=== PATIENT | female | born 2005 | race Caucasian/White ===

== ENCOUNTER 2024-12-13 15:02 | Emergency (ER) | payer OTHER, SELFPAY ==
--- NOTE | ~2024-12-13 | US_ITS ---
CLINICAL HISTORY: pelvic pain, heavy menses US pelvis transabdominal Comparison: None provided Findings: Transabdominal scanning performed. Both ovaries normal in size and appearance. Uterus is unremarkable. Normal endometrium. No free fluid. IMPRESSION: 1. Normal transabdominal pelvic ultrasound. This document has been electronically signed by: Michael Ceballos MD on 12/13/2024 19:17:22
--- NOTE | 2024-12-13 15:20 | ED_ITS ---
HPI - Abdominal Pain General Chief Complaint: Abdominal Pain Stated Complaint: N/V, Cramps Time Seen by Provider: 12/13/24 17:01 Source: patient Mode of arrival: ambulatory Limitations: no limitations History of Present Illness ED Provider: Maria Ines Rodriguez PA-C HPI narrative: This is a 19-year-old female assigned at who presents emergency department with concerns of nausea, vomiting and abdominal cramping since 10:30AM this morning. Patient reports that they have had irregular menses for over the past year and patient states that they are currently on their menstrual period. No diarrhea, constipation, or urinary symptoms. Patient reports that they have had abnormal menses, states that that they were over 10 days late this time - last menstrual period was 40 days ago. States that they typically have a very painful period on the 1st day. Patient state that today was very unusual for severe pain. Took Tylenol without any pain relief. Denies any fevers or chills. They are sexually active, no concerns for sexually transmitted infections. No urinary symptoms. patient has not seen an OBGYN before. MD elicited complaint: abdominal pain Onset (ago): hour(s) Related Data Previous Rx's ?Medication ?Instructions ?Recorded cefuroxime axetil 250 mg tablet 250 mg PO BID 7 days # 14 tabs 12/13/24 ketorolac 10 mg tablet 10 mg PO Q8H PRN pain 2 days #6 12/13/24 tabs Allergies Allergy/AdvReac Type Severity Reaction Status Date / Time No Known Allergies Allergy Verified 12/13/24 15:23 Review of Systems Review of Systems Constitutional : No Fever, No Chills ENT/Mouth : No sore throat, No Rhinorrhea Eyes: No Eye Pain, No Swelling, No Redness Cardiovascular : No Chest Pain, No SOB Respiratory : No Cough, No Sputum Gastrointestinal : No Nausea, No Vomiting, No Diarrhea, No abdominal Pain Genitourinary : No Dysuria, No Hematuria Musculoskeletal : No joint pain, No Myalgias, No Joint Swelling Skin : No Skin Lesions, positive skin rash Neuro : No Weakness, No Numbness, No Headache All other systems reviewed and are negative Yes all other systems are reviewed and are negative Constitutional: Reports as per [facility] Social History Social History Advance Directives: No Advance Directives Information Provided: Yes Do you have a plan to hurt others: No Plan Physical Exam ED Vital Signs: Vital Signs - 24 hr 12/13/24 15:22 12/13/24 17:29 12/13/24 18:24 Temperature 98.3 F Pulse Rate 95 82 84 Respiratory Rate 17 16 Blood Pressure 135/70 107/57 L Pulse Oximetry 100 100 Oxygen Delivery Method Room Air Room Air 12/13/24 18:25 12/13/24 18:27 12/13/24 23:00 Temperature 97.9 F Pulse Rate 86 104 H 78 Respiratory Rate 16 Blood Pressure 106/58 L 109/58 L 117/68 Pulse Oximetry 100 Oxygen Delivery Method 12/14/24 00:01 Temperature 97.9 F Pulse Rate 78 Respiratory Rate 16 Blood Pressure 117/68 Pulse Oximetry 100 Oxygen Delivery Method BMI result Body Mass Index 26.0 Const General: cooperative, comfortable and no acute distress Orientation/consciousness: patient oriented x3 Limitations: no limitations HENMT Head: Yes normal to inspection, Yes normocephalic and Yes atraumatic Ears: hearing grossly normal bilaterally General nose exam: Normal external nose present Face and sinus: Yes normal facial exam Mouth: Normal oral and palatal mucosa present, oropharynx normal and moist mucous membranes Throat: Yes posterior oropharynx normal Eyes General: appearance normal, both eyes and all related structures Eyelids: Yes eyelids normal Conjunctivae: conjunctivae normal Sclerae: sclerae normal Pupils: Equal, round and reactive pupils present EOM: EOMs intact bilaterally Neck Neck: Yes normal visual inspection, Yes full ROM and Yes no lymphadenopathy Lymphatic: no lymphadenopathy noted Chest Chest palpation & inspection: normal inspection of the chest Resp Effort & Inspection: normal respiratory effort and able to speak in complete sentences Auscultation: clear to auscultation bilaterally, no crackles, no rales, no rhonchi and no wheezes Cardio Rate: regular rate Rhythm: regular rhythm Heart sounds: S1 normal heart sound present and S2 normal heart sound present GI Inspection: Yes normal to inspection Other: No cervical motion tenderness on exam. Mild bright red blood in vaginal canal, no active hemorrhage noted. External Female Exam: normal external appearance Speculum Exam - Vagina: normal appearance of the vagina, normal palpation and normal vaginal discharge Speculum Exam - Cervix: normal appearance of the cervix, normal palpation and Cervical os closed Bimanual exam- vagina & uterus: normal palpation and normal palpation Bimanual Exam- Adnexa, other: normal adnexae Skin General skin exam: no rashes or lesions noted Trauma: no lacerations or abrasions Wounds: no wounds Neuro General: patient oriented x3 and moves all extremities Cranial nerves: Yes Equal, round and reactive pupils present Extrem General: Yes normal to inspection Right upper extremity: normal to inspection Left upper extremity: normal to inspection Right lower extremity: normal to inspection Left lower extremity: normal to inspection Course Course Course Narrative: Marian Tony [employer]ADER 12/13 1520 This is a rapid medical exam. Deferred additional HPI, ROS, PE to primary provider. 19yo female with no PMH here with complaints of abdominal cramping, nausea/vomiting since 1030 this morning. Currently on her menstrual cycle. No diarrhea, constipation, urinary symptoms. No concern for . No concern for STI. Will obtain labs, UA VSS Reevaluation(s) Reevaluation #1: I Christelle Romo PA-C have accepted care of the patient and signed out pending transvaginal ultrasound and final disposition Transvaginal ultrasound:Comparison: None provided Findings: Additional color and spectral Doppler images of the ovaries were obtained. Both ovaries demonstrate normal color Doppler signal with normal arterial and venous spectral tracings. IMPRESSION: 1. Normal pelvic ultrasound with Doppler. No evidence of ovarian torsion. This document has been electronically signed by: Michael Ceballos MD on 12/13/2024 23:13:22 Addendum Dictated By: Michael Ceballos MD Addendum Signed By: <Electronically signed by Michael Ceballos MD in [place]> 12/13/242313 Addendum Cosigned By: DD/ TD/TT: 12/13/24 CLINICAL HISTORY: pelvic pain, heavy menses US pelvis transabdominal Comparison: None provided Findings: Transabdominal scanning performed. Both ovaries normal in size and appearance. Uterus is unremarkable. Normal endometrium. No free fluid. IMPRESSION: 1. Normal transabdominal pelvic ultrasound. This document has been electronically signed by: Michael Ceballos MD on 12/13/2024 19:17:22 Dictated By: Vadim Medical Decision Making Medical Decision Making [facility] Narrative: This is a 19-year-old female who presents emergency department with concerns of pelvic pain which started at 10:30 a.m. this morning. Last menstrual period was 40 days ago. They state that they are menses was 10 days late. On arrival, vital signs within normal limits. Patient with mild tenderness palpation in the pelvic region, no exquisite tenderness palpation, abdomen is soft, nontender. Differential diagnoses includes dysmenorrhea, abnormal uterine bleeding, ovarian cyst. Less likely ovarian torsion, or UTI given that she has no urinary symptoms. 9:07 PM 12/13/2024 (Maria Ines Rodriguez PA-C): Ultrasound was performed, unremarkable however ovarian Doppler was not on the scan therefore reordered. Labs were obtained, slight leukocytosis at 13.2, chemistry revealing no significant electrolyte derangement. They are not . Urine with high specific gravity, large blood, small leuk esterases, and wbc's. They have no urinary symptoms, this is unlikely a urinary tract infection however will start on oral antibiotics. Awaiting ultrasound with Doppler, although ovarian torsion is less likely as patient has much more comfortable. Pelvic examination was performed, no acute findings seen. Patient does have some scant vaginal bleeding in the vaginal vault however no evidence of hemorrhage. H&H stable. Sign out given to my colleague, Luisa Romo, pending US with doppler. Differential Diagnosis Differential Diagnoses: The differential diagnosis associated with the presentation includes See above Admission/Observation Consideration of admission/observation: Escalation of care including admission/observation considered Lab Data [facility] Lab Attestation statement: I reviewed the patient's lab results. See [facility] 12/13/24 15:34 12/13/24 15:34 Labs: Lab Results 12/13/24 12/13/24 12/13/24 Range/Units 15:34 15:39 20:47 WBC 13.2 H (4.8-10.8) X10*3/uL RBC 4.33 (4.20-5.50) X10*6/uL Hgb 13.7 (12.0-16.0) g/dl Hct 39.4 (37.0-47.0) % MCV 91.0 (80.0-98.0) fL MCH 31.6 (27.0-33.0) pg MCHC 34.8 (31.0-35.0) g/dl RDW 12.3 (11.0-16.0) % Plt Count 247 (160-400) X10*3/uL MPV 9.3 L (9.4-12.3) fL Immature Gran % (Auto) 0.2 (0.0-0.4) % Neut % (Auto) 86.0 H (45-73) % Lymph % (Auto) 10.1 L (20-40) % Hardee % (Auto) 3.4 (2-11) % Eos % (Auto) 0.1 (0-4) % Baso % (Auto) 0.2 (0-2) % Lymph # (Auto) 1.3 (1.2-4.9) X10*3/uL Hardee # (Auto) 0.5 (0.1-1.2) X10*3/uL Eos # (Auto) 0.0 (0.0-0.4) X10*3/uL Baso # (Auto) 0.0 (0.0-0.2) X10*3/uL Abs Immat Gran (auto) 0.03 (0.00-0.03) X10*3/uL Absolute Neuts (auto) 11.3 H (2.0-8.3) x10*3/uL Absolute Nucleated RBC 0.000 (0.0-0.012) X10*3/uL Nucleated RBC % (auto) 0.0 (0.0-0.2) /100WBC Sodium 146 H (135-145) mmol/L Potassium 4.2 (3.3-5.1) mmol/L Chloride 111 H (96-108) mmol/L Carbon Dioxide 24 (22-29) mmol/L Anion Gap 15 (12-20) BUN 7 L (9-16) mg/dL Creatinine 0.59 (0.5-1.4) mg/dL Estim Creat Clear Calc 144.8 Estimated GFR > 60 Random Glucose 105 (60-115) mg/dL Calcium 9.3 (8.4-10.2) mg/dL Total Bilirubin 0.9 (0.0-1.0) mg/dL Direct Bilirubin 0.3 (0.0-0.5) mg/dL AST 17 (5-31) U/L ALT 7 (0-31) U/L Alkaline Phosphatase 67 (39-117) U/L Total Protein 7.3 (6.5-8.0) g/dL Albumin 5.0 (3.5-5.0) g/dL Beta HCG, Quant < 2 mIU/mL Urine Color Yellow Urine Appearance Clear Urine pH 5.5 (5.0-9.0) Ur Specific [place]wood >= 1.030 H (1.005-1.025) Urine Protein 30 (1+) H (Neg-Trace) mg/dL Urine Glucose (UA) Negative (Negative) mg/dL Urine Ketones 40 (Negative) mg/dL Urine Blood Large (3+) H (Negative) Urine Nitrite Negative (Negative) Ur Leukocyte Esterase Small (1+) H (Negative) Urine RBC >20 H (0-2) /HPF Urine WBC 11-20 H (0-5) /HPF Ur Squamous Epith Cells 0-2 (0-2) /HPF Urine Bacteria Trace (None Seen) Hyaline Casts 0-2 (0-2) /LPF Urine Test NEGATIVE (NEGATIVE) Chlam trachomat DNA PCR NOT DETECTED (Not Detect.) N.gonorrhoeae DNA (PCR) NOT DETECTED (Not Detect.) T. vaginalis (PCR) NOT DETECTED (Not Detect) Bact vaginosis (PCR) NEGATIVE (Negative) C. krusei/glabrata (PCR) NOT DETECTED (Not Detect) Kristal group (PCR) NOT DETECTED (Not Detect) Radiology Impression Discussion of test interpretation with radiology: I have reviewed the radiologist's reading. Radiologist Impression: ADDENDUMThis document has been electronically signed by: Michael Ceballos MD on 12/13/2024 19:17:22 ADDENDUM: US pelvis transvaginal with Doppler Comparison: None provided Findings: Additional color and spectral Doppler images of the ovaries were obtained. Both ovaries demonstrate normal color Doppler signal with normal arterial and venous spectral tracings. IMPRESSION: 1. Normal pelvic ultrasound with Doppler. No evidence of ovarian torsion. This document has been electronically signed by: Michael Ceballos MD on 12/13/2024 23:13:22 Addendum Dictated By: Michael Ceballos MD Addendum Signed By: <Electronically signed by Michael Ceballos MD in [place]> 12/13/242313 Addendum Cosigned By: DD/ TD/TT: 12/13/24 CLINICAL HISTORY: pelvic pain, heavy menses US pelvis transabdominal Comparison: None provided Findings: Transabdominal scanning performed. Both ovaries normal in size and appearance. Uterus is unremarkable. Normal endometrium. No free fluid. IMPRESSION: 1. Normal transabdominal pelvic ultrasound. This document has been electronically signed by: Michael Ceballos MD on 12/13/2024 19:17:22 Dictated By: Michael Ceballos MD Medications Administered Discontinued Medications Generic Name Dose Route Start Last Admin Trade Name Freq PRN Reason Stop Dose Admin Cefuroxime Axetil 250 mg 12/13/24 21:06 12/13/24 21:21 Cefuroxime Axetil 250 Mg Tablet PO 12/13/24 21:07 250 mg ONCE ONE Administration Sodium Chloride 1,000 mls @ 999 mls/hr 12/13/24 17:18 12/13/24 18:42 Ns IV 12/13/24 18:18 Infused .Q1H1M ONE Infusion Ketorolac Tromethamine 15 mg 12/13/24 17:19 12/13/24 17:27 Ketorolac Tromethamine 15 Mg/Ml Vial IVPUSH 12/13/24 17:20 15 mg ONCE ONE Administration Discharge Plan Discharge Clinical Impression: Abnormal uterine bleeding, UTI (urinary tract infection) Patient Disposition: Home, Self-Care Instructions: Abnormal (Dysfunctional) Uterine Bleeding (ED) Additional Instructions: You were seen in the emergency department and your workup today was reassuring. The transvaginal ultrasound was normal there were no acute findings. Your urine does appear to be infected however this could be due to contamination, we started you on antibiotics, we gave you your 1st dose here. Please resume tomorrow. Your swabs that were collected today will be process, we will call you if any of these are positive. You need to follow-up with an OBGYN. If any new or worsening symptoms occur including but not limited to worsening pain, high fevers, chills, please seek emergent care. Prescriptions: New ketorolac 10 mg tablet 10 mg PO Q8H PRN (Reason: pain) 2 Days Qty: 6 0RF cefuroxime axetil 250 mg tablet 250 mg PO BID 7 Days Qty: 14 0RF Stand Alone Forms: Work/School Release Interventions: ED Discharge Assessment Last Done: 12/14/24 00:01 Discharge Date/Time: 12/14/24 00:01 Print Language: Yi
[2024-12-13 15:22] VITALS: BP 135/70; PULSE 95; RESP 17; TEMP 36.8; O2SAT 100; BMI 26.0
[2024-12-13 15:39] LABS: MANUAL DIFF FLAG NO
[2024-12-13 15:42] LABS: Hematocrit 39.4 % (37.0-47.0); Hemoglobin 13.7 g/dl (12.0-16.0); Imm Gran Abs Auto 0.03 X10*3/uL (0.00-0.03); Imm Gran Pct Auto 0.2 % (0.0-0.4); Lymphocytes Absolute Auto 1.3 X10*3/uL (1.2-4.9); Mean Corpuscular HGB Conc 34.8 g/dl (31.0-35.0); Mean Corpuscular Hemoglobin 31.6 pg (27.0-33.0); Mean Corpuscular Volume 91.0 fL (80.0-98.0); NRBC Abs Auto 0.000 X10*3/uL (0.0-0.012); NRBC Pct Auto 0.0 /100WBC (0.0-0.2); Platelet Count 247 X10*3/uL (160-400); Red Blood Count 4.33 X10*6/uL (4.20-5.50); White Blood Count 13.2 X10*3/uL (4.8-10.8)
[2024-12-13 16:00] LABS: Appearance Urine Clear; Glucose Urine UA Negative (Negative); PH 5.5 (5.0-9.0); Specific Gravity - Urine >= 1.030 (1.005-1.025); UMIC TRIGGER UACC YES
[2024-12-13 16:01] LABS: UPreg QC Valid YES
[2024-12-13 16:02] LABS: UACC Culture Trigger YES
[2024-12-13 16:13] LABS: Alanine Aminotransferase 7 U/L (0-31); Albumin Level 5.0 g/dL (3.5-5.0); Alkaline Phosphatase 67 U/L (39-117); Anion Gap 15 (12-20); Aspartate Amino Transferase 17 U/L (5-31); Blood Urea Nitrogen 7 mg/dL (9-16); Calcium 9.3 mg/dL (8.4-10.2); Carbon Dioxide 24 mmol/L (22-29); Chloride 111 mmol/L (96-108); Creatinine Clr Calc Pharmacy 144.8; Estimated Glomerular Filt Rate > 60; Potassium 4.2 mmol/L (3.3-5.1); Sodium 146 mmol/L (135-145); Total Protein 7.3 g/dL (6.5-8.0)
--- OUTSIDE RECORDS SUMMARY | 2024-12-13 17:02 | XMS_ITS | Patient Health Record ---
Author Organization [facility] Address [address] [place] [address] Support Name Relationship Address Phone GINNY ARCHULETA Guarantor Unknown [phone] Allergies No Known Allergies Reason For Referral No Information Medications Medication SIG (Take, Route, Frequency, Duration) Notes Start Date End Date Status Mupirocin apply a small amount to both nostrils twice daily x two weeks *Pick strength-form from [employer] for eRX* 12/12/2021 Active Immunizations Vaccine Route Administration Date Status Comme nts HPV9 (human papillomavirus), nonavalent Unknown 10/15/2016 Administered HPV9 (human papillomavirus), nonavalent Unknown 06/25/2017 Administered HPV9 (human papillomavirus), nonavalent Unknown 06/02/2018 Administered Influenza, quadrivalent, spl it, preservative free, 3 years or older Unknown 02/05/2018 Administered Meningococcal MCV4O Unknown 10/15/2016 Administered Novel [id number], nasal Unknown 03/03/2009 Admin istered Pfizer Biontech Covid-19 Vac cine 2nd dose Unknown 07/05/2020 Administered Pfizer Biontech Covid-19 Vac cine 2nd dose Unknown 07/26/2020 Administered Pfizer Biontech Covid-19 Vac cine 2nd dose Unknown 03/08/2021 Administered Tdap Unknown 10/15/2016 Administered Social History Social History Additional Details Category Social Info Options Details Migrated Social History Migrated Social History Health-related behavior : Marital Status: single ST , Alcohol intake : denies alcohol use ST , Smoking Status : smoking status - Never smoker Problems Problem Type SNOMED Code ICD Code Onset Dates Problem Status W/U Status Risk Notes Problem Deviated nasal septum (359525106) Deviated nasal septum (J34.2) 12/12/2021 Active confirmed Problem Epistaxis (459262463) Epistaxis (R04.0) 12/12/2021 Active confirmed Problem Body mass index (09381810) Body mass index (BMI) pediatric, 5th percentile to less than 85th percentile for age (Z68.52) 12/12/2021 Active confirmed Plan Of Treatment No Information Insurance Providers Payer Name Payer Address Payer Phone Subscriber Number Group Number Insured Name Patient Relationship to Insured Coverage Start Date Coverage End Date [employer] [address] [address] [place] [address] [id number] ZANE ARCHULETA Self - patient is the insured 9
--- OUTSIDE RECORDS SUMMARY | 2024-12-13 17:02 | XMS_ITS | Clinical Summary ---
Author Organization [facility] Address [address] [place] [address] Care Team Providers Care Oral And Maxillofacial Pathologist Name Role Phone Unavailable Primary Care Provider Unavailabl e Allergies No known active allergies Medications MULTIVITAMIN POIndications:It benny take by mouth. Active Active Problems Problem Noted Date Diagnosed Date BMI (body mass index), pedia tric, 85% to less than 95% for age 0609/03/2013 Hemangioma of skin 02/14/2010 Immunizations Immunization Administration Dates Next Due DTaP Vaccine 07/30/2005, 5,2004,2004 DTaP/IPV (KINRIX) 06/30/2009 H1N1 Nasal Mist (Novel) >2yr 03/03/2009 HEP B/HIB (COMVAX) 05/17/2005,2004, 005 Hepatitis A (<19yr) 02/04/2006,07/30/2005 Influenza Vaccine FluMIST >2 yr (Flu Clinic) 01/14/2009 Influenza Vaccine FluMIST Quadrivalent (>2yr) 02/14/2010,03/08/2008,01/30/2007 Influenza Vaccine, Unspecifi ed formulation 02/04/2006,02/21/2005 MMR Vaccine 06/30/2009,02/21/2005 Pneumococcal (PCV7) Prevnar7 05/17/2005, 2004,2004,2004 Varicella (Chicken Pox) 06/30/2009,02/21/2005 polio (IPV) 2004,2004,2004 Family History Medical History Relation Name Comments Diabetes Maternal Grandfather Thyroid Disease Maternal Grandmother Cancer Paternal Grandmother Relation Name Status Comments Maternal Grandfather Maternal Grandmother Paternal Grandmother Social History Tobacco Use Types Packs/Day Years Used Date Smoking Tobacco: Never Assessed Comments Unknown Sex and Gender Information Value Date Recorded Sex Assigned at Not on file Legal Sex Female 2:34 AM CDT Gender Identity Not on file Sexual Orientation Not on file Last Filed Vital Signs Vital Sign Reading Time Taken Comments Blood Pressure 114/68 09/03/2013 3:00 PM CDT Pulse 114 09/03/2013 3:00 PM CDT Temperature 36.8 C (98.2 F) 09/03/2013 3:00 PM CDT Respiratory Rate - - Oxygen Saturation - - Inhaled Oxygen Concentration - - Weight 42.7 kg (94 lb 3.2 oz) 09/03/2013 3:00 PM CDT Height 138.4 cm (4' 6.5 ) 09/03/2013 3:00 PM CDT Body Mass Index 22.3 09/03/2013 3:00 PM CDT Plan of Treatment Not on file Insurance [facility]
[2024-12-13 17:29] VITALS: PULSE 82; RESP 16; O2SAT 100
[2024-12-13 18:24] VITALS: BP 107/57; PULSE 84
[2024-12-13 18:25] VITALS: BP 106/58; PULSE 86
[2024-12-13 18:27] VITALS: BP 109/58; PULSE 104
[2024-12-13 23:00] VITALS: BP 117/68; PULSE 78; RESP 16; TEMP 36.6; O2SAT 100
[2024-12-14 00:01] VITALS: BP 117/68; PULSE 78; RESP 16; TEMP 36.6; O2SAT 100
[2024-12-14 03:38] LABS: Bacterial Vaginosis PCR NEGATIVE (Negative); Candida Group PCR NOT DETECTED (Not Detect); Candida glab krusei PCR NOT DETECTED (Not Detect); Trichomonas vaginalis PCR NOT DETECTED (Not Detect)
[2024-12-14 04:12] LABS: CT PCR NOT DETECTED (Not Detect.); NG PCR NOT DETECTED (Not Detect.)
== END 2024-12-14 00:01 | disposition home or self-care (01) ==
PROVIDERS: Nurse Practitioner Family; Physician Assistant Medical; Emergency Provider Emergency Medicine Emergency Medical Services
DX: N93.9 Abnormal uterine and vaginal bleeding, unspecified (principal); N39.0 Urinary tract infection, site not specified; R10.9 Unspecified abdominal pain; R11.2 Nausea with vomiting, unspecified; Z79.899 Other long term (current) drug therapy
CPT/HCPCS: 36415; 76856; 80048; 80076; 81001; 81003; 81025; 81515; 84702; 85025; 87086; 87491; 87591; 93975; 96361; 96374; 99285; J1885

== ENCOUNTER → 2024-12-13 19:40 | Outpatient (BNV) | payer OTHER, SELFPAY | PROVIDERS: Emergency Provider Emergency Medicine Emergency Medical Services; Visit Provider Radiology Diagnostic Radiology | DX: R10.84 Generalized abdominal pain (principal); N92.0 Excessive and frequent menstruation with regular cycle | CPT/HCPCS: 76856 ==